=== PATIENT | male | born 1970 | race Hispanic/Latino ===

== ENCOUNTER 2018-08-19 18:39 | Emergency (ER) | payer SELFPAY ==
[~2018-08-19] VITALS: Ht 167.6 cm; Wt 100.0 kg
[~2018-08-19 18:39] MED LIST: CLONIDINE0.2 MG OR; COREG CR40 MG PO; LISINOPRIL10 MG OR; LISINOPRIL20 M1 OR; METFORMIN1000 MG PO; METFORMIN500 M1 OR; NAPROSYN500 MG PO; PLAVIX75 MG PO; RONDE1 OR; ULTRAM50 M1 PO; ULTRAM50 MG PO; VENTOLIN HFA IN; ZITHROMAX250 MG OR; ZITHROMAX500 MG OR; [UNRECOGNIZED DRUG - OTHER]; [UNRECOGNIZED DRUG - REMARK]
[2018-08-19 19:25] LABS: IMMATURE GRANULOCYTES 1.2 % (0.0-5.0); MEAN CELL VOLUME 90.8 fL CALC (80.0-100.0); MEAN CORPUSCULAR HGB 30.5 pG CALC (26.0-32.0); MEAN CORPUSCULAR HGB CONC 33.6 g/L CALC (32.0-36.0); NEUT# 10.59 thou/uL (1.82-7.42); RED BLOOD COUNT 4.79 mill/uL (4.70-6.10); RED CELL DISTRI WIDTH 12.6 % (11.5-15.5)
[2018-08-19 19:28] LABS: HEMATOCRIT 43.5 % (39.0-50.0); HEMOGLOBIN 14.6 g/dl (14.0-18.0)
[2018-08-19 19:43] LABS: ALBUMIN 3.7 g/dL (3.2-5.0); BILIRUBIN, TOTAL 0.5 mg/dL (0.0-1.4); CREATININE 2.4 mg/dL (0.7-1.3)
[2018-08-19 19:44] LABS: POTASSIUM 4.4 mmol/l (3.5-5.1); TOTAL PROTEIN 6.6 g/dL (6.3-8.2)
[2018-08-19] MEDS ORDERED: LASIX 80 MG TAB80 M1 PO (20:57)
[2018-08-19] MEDS ORDERED: AMLODIPINE BESY10 MG PO (20:57)
[2018-08-19] MEDS ORDERED: METFORMIN500 MG PO (20:58)
[2018-08-19 21:01] LABS: URINE BILIRUBIN - DIPSTICK NEGATIVE (NEGATIVE); URINE BLOOD DIPSTICK TRACE-INTACT (NEGATIVE); URINE COLOR YELLOW; URINE GLUCOSE - DIPSTICK 500 mg/dL (NEGATIVE); URINE KETONE NEGATIVE (NEGATIVE); URINE LEUK ESTERASE NEGATIVE (NEGATIVE); URINE NITRITE - DIPSTICK NEGATIVE (Negative); URINE PROTEIN - DIPSTICK 100 mg/dL (NEG-TRACE); URINE SPECIFIC GRAVITY 1.025; URINE UROBILINOGEN - DIPSTICK 0.2 E.U./dL (0.2)
[2018-08-19 21:03] LABS: BARBITURATES NEGATIVE (NEGATIVE); COCAINE NEGATIVE (NEGATIVE); METHADONE NEGATIVE (NEGATIVE); OXCYCODONE NEGATIVE (NEGATIVE); TETRAHYDROCANNABIONOL NEGATIVE (NEGATIVE); TRICYLIC ANTIDEPRESSANTS NEGATIVE (NEGATIVE)
[2018-08-19 21:15] LABS: URINE SQUAMOUS EPITHELIAL CELL FEW EPI/hpf (0-FEW)
[2018-08-19 21:20] VITALS: BP 110/74
== END 2018-08-19 21:18 | disposition short-term general hospital (02) | DRG 189 ==
LOC: ED 18:39
PROVIDERS: Emergency Medicine
DX: J81.1 Chronic pulmonary edema (principal); R91.8 Other nonspecific abnormal finding of lung field; E11.65 Type 2 diabetes mellitus with hyperglycemia; I10 Essential (primary) hypertension; F17.210 Nicotine dependence, cigarettes, uncomplicated; Z95.5 Presence of coronary angioplasty implant and graft

== ENCOUNTER 2019-02-22 | Emergency (ER) | payer SELFPAY ==
[~2019-02-22] MED LIST changes: +AMLODIPINE BESY10 MG PO; +LASIX 80 MG TAB80 M1 PO; +METFORMIN500 MG PO
[2019-02-22 14:14] LABS: HEMOGLOBIN 14.9 g/dl (14.0-18.0); IMMATURE GRANULOCYTES 0.8 % (0.0-5.0); MEAN CELL VOLUME 86.6 fL CALC (80.0-100.0); MEAN CORPUSCULAR HGB 30.7 pG CALC (26.0-32.0); MEAN CORPUSCULAR HGB CONC 35.5 g/L CALC (32.0-36.0); NEUT# 8.26 thou/uL (1.82-7.42); RED BLOOD COUNT 4.85 mill/uL (4.70-6.10); RED CELL DISTRI WIDTH 11.5 % (11.5-15.5)
[2019-02-22 14:40] LABS: MYOGLOBIN 78 ng/mL (0 - 121)
[2019-02-22 14:56] LABS: ALBUMIN 4.3 g/dL (3.2-5.0); BILIRUBIN, TOTAL 0.7 mg/dL (0.0-1.4); CREATININE 1.8 mg/dL (0.7-1.3); TOTAL PROTEIN 7.4 g/dL (6.3-8.2)
[2019-02-22] MEDS ORDERED: ATORVASTATIN CA40 MG PO (16:29)
[2019-02-22] MEDS ORDERED: ISORDIL10 MG PO (16:29)
[2019-02-22] MEDS ORDERED: HYDRALAZINE10 M2 PO (16:30)
[2019-02-22] MEDS ORDERED: BUMETANIDE1 MG PO (16:30)
[2019-02-22] MEDS ORDERED: NEURONTIN600 MG PO (16:32)
== END 2019-02-22 16:41 | disposition short-term general hospital (02) | DRG 66 ==
PROVIDERS: Emergency Medicine
DX: I63.89 Other cerebral infarction (principal); R29.810 Facial weakness; G83.24 Monoplegia of upper limb affecting left nondominant side; R29.708 NIHSS score 8; E11.9 Type 2 diabetes mellitus without complications; I10 Essential (primary) hypertension; I25.10 Atherosclerotic heart disease of native coronary artery without angina pectoris; F17.200 Nicotine dependence, unspecified, uncomplicated; Z79.84 Long term (current) use of oral hypoglycemic drugs
CPT/HCPCS: J1644

== ENCOUNTER 2020-01-14 09:03 | Day surgery (SDC) | payer BC ==
[~2020-01-14] VITALS: Ht 167.6 cm; Wt 70.3 kg
[~2020-01-14 09:03] MED LIST changes: +ALLOPURINOL100 MG PO; +APRESOLINE25 MG/TAB PO; +ASPIRIN 81 LOW81 MG PO; +ATORVASTATIN CA40 MG PO; +ATORVASTATIN CA80 MG PO; +BUMETANIDE1 MG PO; -COREG CR40 MG PO; +COREG25 MG PO; +ISORDIL10 MG PO; +LANTUS100 UNIT/M SC; +MULTI VIT PO; +NEURONTIN600 MG PO; +OXYCODO-APAP1 TA2 PO; +TRULICITY1.5 MG/0.5 SC; +ZINC50 M1 PO; +ZOFRAN4 M1 PO
[2020-01-14 11:02] VITALS: BP 147/84
--- NOTE | 2020-01-17 12:27 | NUR ---
PER PHYSICIAN, NOTIFIED PATIENT OF BENIGN/NEGATIVE RESULTS. RECOMMENDED REPEAT X 5 YEARS. IF NEEDED SOONER MAY DISCUSS WITH PRIMARY AND REFERRAL PATIENT NEEDED TO OUR OFFICE. VERBALIZED UNDERSTANDING OF INFORMATION PROVIDED. ADVISED TO FOLLOW UP WITH PRIMARY CARE NEEDED. NO CONCERNS VOICED AT TIME OF CALL. STATED WAS CONTENT WITH CARE PROVIDED. RESULTS FORWARDED TO PRIMARY PHYSICIAN FOR CONTINUITY OF CARE.
== END 2020-01-14 11:18 | disposition home or self-care (01) | DRG 395 ==
LOC: ENDO 09:03 → ORM 09:15 → ENDO 09:15
PROVIDERS: ATTEND Surgery
PROC: 0DBG8ZX Excision of Left Large Intestine, Via Natural or Artificial Opening Endoscopic, Diagnostic (ICD-10-PCS; principal; 2020-01-14)
PROC: 0DBL8ZX Excision of Transverse Colon, Via Natural or Artificial Opening Endoscopic, Diagnostic (ICD-10-PCS; 2020-01-14)
PROC: 0DJ08ZZ Inspection of Upper Intestinal Tract, Via Natural or Artificial Opening Endoscopic (ICD-10-PCS; 2020-01-14)
DX: D12.4 Benign neoplasm of descending colon (principal); D12.3 Benign neoplasm of transverse colon; K21.9 Gastro-esophageal reflux disease without esophagitis; I69.398 Other sequelae of cerebral infarction; R43.9 Unspecified disturbances of smell and taste; I10 Essential (primary) hypertension; E11.40 Type 2 diabetes mellitus with diabetic neuropathy, unspecified; Z79.84 Long term (current) use of oral hypoglycemic drugs; Z20.828 Contact with and (suspected) exposure to other viral communicable diseases